=== PATIENT | female | born 1975 | race Caucasian/White ===

== ENCOUNTER 2018-01-04 07:27 | Emergency (ER) | payer OTHER ==
[2018-01-04 08:02] LABS: URINE PH (Dip) POC 5.5 (5.0-8.5)
[2018-01-04 08:02] LABS: URINE BLOOD (Dip) POC Trace-intact (NEGATIVE); URINE GLUCOSE (Dip) POC Negative (NEGATIVE); URINE KETONES (Dip) POC Negative (NEGATIVE); URINE LEUKOCYTE EST (Dip) POC 1+ (NEGATIVE); URINE NITRITE (Dip) POC Negative (NEGATIVE); URINE TOTAL PROTEIN POC 1+ (NEGATIVE)
== END 2018-01-04 08:28 | disposition home or self-care (01) ==
LOC: FTE 07:27
DX: N39.0 Urinary tract infection, site not specified (principal); J06.9 Acute upper respiratory infection, unspecified; R40.2412 Glasgow coma scale score 13-15, at arrival to emergency department
CPT/HCPCS: 81003; 99283

== ENCOUNTER 2018-11-21 21:40 | Emergency (ER) | payer OTHER ==
[2018-11-21] MEDS: FAMOTIDINE 20 MG TAB PO (22:36)
[2018-11-21] MEDS: DIPHENHYDRAMINE 50 MG CAP PO (22:36)
[2018-11-21] MEDS: predniSONE 20 MG TAB PO (22:37)
== END 2018-11-21 22:46 | disposition home or self-care (01) ==
LOC: FTE 21:40
DX: R21 Rash and other nonspecific skin eruption (principal)
CPT/HCPCS: 99283; J7512